=== PATIENT | male | born 1955 ===

== ENCOUNTER 2018-02-27 16:33 | Emergency (ER) | payer MEDICAID, OTHER ==
[~2018-02-27] VITALS: Ht 172.7 cm; Wt 81.6 kg
[2018-02-27] MEDS ORDERED: [UNRECOGNIZED DRUG - REMARK] (16:44)
[2018-02-27] MEDS ORDERED: [UNRECOGNIZED DRUG - REMARK] (16:44)
[2018-02-27] MEDS ORDERED: [UNRECOGNIZED DRUG - REMARK] (16:44)
[2018-02-27] MEDS ORDERED: [UNRECOGNIZED DRUG - REMARK] (16:44)
[2018-02-27] MEDS ORDERED: [UNRECOGNIZED DRUG - REMARK] (16:44)
[2018-02-27] MEDS ORDERED: IBUPROFEN 600 MG TABLET PO ONE (16:45)
[2018-02-27] MEDS ORDERED: IBUPROFEN 600 MG TABLET ONE (16:47)
--- NOTE | 2018-02-27 17:09 | NUR ---
Patient discharged to home in stable conditon. Written and verbal after care instructions given. Patient verbalizes understanding of instructions.
== END 2018-02-27 17:10 | disposition home or self-care (01) ==
LOC: ER 16:33
DX: Z04.1 Encounter for examination and observation following transport accident (principal); I10 Essential (primary) hypertension; E11.9 Type 2 diabetes mellitus without complications; Z79.899 Other long term (current) drug therapy; V43.52XA Car driver injured in collision with other type car in traffic accident, initial encounter; Y93.89 Activity, other specified; Y92.89 Other specified places as the place of occurrence of the external cause; Y99.8 Other external cause status
CPT/HCPCS: 71045; 93005; A4663